=== PATIENT | male | born 1940 | race Caucasian/White ===

== ENCOUNTER 2018-06-25 10:18 | Emergency (ER) | payer MEDICARE, OTHER, SELFPAY ==
[2018-06-25 10:39] VITALS: BP 132/80; PULSE 80; RESP 13; TEMP 36.2; O2SAT 99
--- NOTE | 2018-06-25 10:50 | ED.WOUNDLAC ---
HPI - Wound/Laceration General Chief Complaint: Wound/Laceration Stated Complaint: hand laceration Time Seen by Provider: 06/25/18 10:21 Source: patient Mode of arrival: ambulatory Limitations: no limitations History of Present Illness HPI narrative: [id number] male here for evaluation of a cut to his left hand. Patient states that just prior to arrival he cut his hand on a brand-new oyster knife. He does not know when his last tetanus shot was flared he did wash it out prior to arrival. Review of Systems Integumentary/Breasts Comments: Cut to left hand Neurologic Comments: No numbness or tingling in the left hand Hematologic/Lymphatic Denies easy bleeding and Denies easy bruising [facility] Medical History Healthy adult (Acute) Surgical History No pertinent past surgical history (Acute) Social History Smoking Status: Never smoker Exam Initial Vital Signs Initial Vital Signs: Vital Signs Temperature 97.1 F L 06/25/18 10:39 Pulse Rate 80 06/25/18 10:39 Respiratory Rate 13 06/25/18 10:39 Blood Pressure 132/80 06/25/18 10:39 Pulse Oximetry 99 06/25/18 10:39 Const General: cooperative, healthy appearing, comfortable, well developed and acute distress Resp Effort & Inspection: normal respiratory effort Cardio Pulses: radial pulses present on the left Skin Other: 2 cm laceration to the palmar aspect over the thenar eminence left hand. No active bleeding. Neuro Other: Sensation intact to light touch left upper extremity Procedures Laceration Repair Laceration 1: Site: hand Side (If applicable): left Size (cm): 2 Description: linear Depth: simple, single layer Local Anesthetic: lidocaine 1% Amount of anesthesia used (mL): 2 Pre-repair: wound explored, irrigated extensively and deep structures intact Skin layer closed with: nylon Size (cm): 5-0 Number of sutures: 2 Technique: simple, interrupted Course Orders Ordered: Discontinued Medications Diphtheria/Tetanus/Acell Pertussis (Adacel) 0.5 ml IM .ONCE ONE Stop: 06/25/18 10:51 Last Admin: 06/25/18 11:06 Dose: 0.5 ml Vital Signs - 8 hr 06/25/18 10:39 Temperature 97.1 F L Pulse Rate 80 Respiratory Rate 13 Blood Pressure 132/80 Pulse Oximetry 99 MDM - Wound/Laceration MDM Narrative Medical decision making narrative: Neurovascularly intact. Laceration closed as above. Patient was given care instructions. His tetanus shot was updated here in the ER. Patient expressed understanding and agreement with plan. Discharge Plan Departure Patient Disposition: Home Clinical Impression: Laceration Discharge Date/Time: 06/25/18 11:27 Interventions: ED Discharge Assessment Last Done: 06/25/18 11:26 Instructions: DI for Minor Laceration Activity Restrictions/Additional Instructions: Keep the bandage on for the next 24 hr but then after that you can take it off and shower like normal. Use soap and water as needed. Return to the emergency department for any new or worsening symptoms. The stitches do need to be removed in approximately 7-10 days.
[2018-06-25] MEDS: TET,DIPH,PERTUSS(ACELL),VAC/PF 0.5 ML SYRINGE IM (11:06)
[2018-06-25 11:26] VITALS: BP 131/73; PULSE 51; RESP 12; O2SAT 98
== END 2018-06-25 11:27 | disposition home or self-care (01) ==
PROVIDERS: Emergency Provider Emergency Medicine
DX: S61.412A Laceration without foreign body of left hand, initial encounter (principal); W26.0XXA Contact with knife, initial encounter
CPT/HCPCS: 12001; 90471; 99283; 90715

== ENCOUNTER 2019-05-01 12:11 | Emergency (ER) | payer MEDICARE, OTHER, SELFPAY ==
[2019-05-01 12:27] VITALS: BP 160/67; PULSE 57; RESP 15; TEMP 36.2; O2SAT 99; BMI 25.6
[2019-05-01 12:54] VITALS: BP 165/66; PULSE 54; RESP 17; O2SAT 99
--- NOTE | 2019-05-01 12:55 | PC.NURSE ---
pt arrived with charleen wrap around abd and back.
--- NOTE | 2019-05-01 12:56 | PC.NURSE ---
pt describes falling into boat, thinks he stretched out left arm or elbow and now has lt back/scapula pain.
[2019-05-01 13:00] VITALS: BP 150/70; PULSE 53; O2SAT 99
--- NOTE | 2019-05-01 13:02 | DI.RAD.S_ITS ---
PROCEDURE: XR RIBS LT MIN 3V W CXR1V INDICATIONS: Fall on side, pain with palp, worse with deep breath. TECHNIQUE: 2 views of the left ribs were acquired, along with a single view chest. COMPARISON: None. FINDINGS: Surgical changes and devices: None. Bones and chest wall: There is a displaced fracture within the lateral aspect of the eighth left rib. There is also a subtle deformity within the anterolateral aspect of the ninth left rib. Lungs and pleura: No pleural effusions or pneumothorax. Lungs appear clear. Mediastinum: Mediastinal contours appear normal. Heart size is normal. IMPRESSION: Displaced eighth left rib fracture and possible ninth left rib fracture as well. Dictated by: Zeinab Barajas M.D. on 05/01/2019 at 13:37 Approved by: Zeinab Barajas M.D. on 05/01/2019 at 13:40
--- NOTE | 2019-05-01 13:06 | ED_ITS ---
HPI - Back Pain/Injury <Keara SmithNICHELLE - Last Filed: 05/01/19 21:01> General Chief Complaint: Back Pain/Injury Stated Complaint: fall middle right back hurting Time Seen by Provider: 05/01/19 12:31 Source: patient Mode of arrival: ambulatory Limitations: no limitations History of Present Illness HPI Narrative: 78-year-old male with a history of hypercholesterol and hypertension, presents emergency department today after falling into his boat and landing on the left side of his back and shoulder. He states he tripped over his things on the deck in slipped back into the boat. He complains of left posterior rib pain underneath his left scapula. He states pain is in aching 5/10 that is worse with movement and palpation. Last night he had trouble falling asleep has it was hard to get comfortable, he was unable to lay on that side. Pain is also worse when he takes a deep breath or tries to clear his throat. He has been trying to stabilize his back with an Lincoln bandage, he states this helped somewhat. He denies hitting his head, denies dizziness, shortness of breath, cough, chest pain, abdominal pain, nausea, vomiting, or change in mental status. His is also in the room and confirms the story. MD Complaint: back pain and fall Onset (ago): day(s) Duration: constant Similar Symptoms Previously: No Location: left upper back Severity: moderate Quality: aching Radiation: none Severity scale (1-10): 5 Relieving factors: immobilization Related Data Home Medications Medication Instructions Recorded Confirmed amlodipine 5 mg PO DAILY 05/01/19 05/01/19 aspirin 81 mg PO DAILY 05/01/19 05/01/19 cilostazol 100 mg PO DAILY 05/01/19 05/01/19 doxazosin 2 mg PO DAILY 05/01/19 05/01/19 escitalopram oxalate 10 mg PO DAILY 05/01/19 05/01/19 finasteride 5 mg PO DAILY 05/01/19 05/01/19 furosemide 40 mg PO DAILY 05/01/19 05/01/19 metoprolol tartrate 05/01/19 pravastatin 20 mg PO DAILY 05/01/19 05/01/19 tiotropium bromide [Spiriva 1 puff INHALATION DIRECTED 05/01/19 05/01/19 Respimat] Previous Rx's Medication Instructions Recorded hydrocodone-acetaminophen [[place]] 1 tab PO Q6H PRN #7 tab 05/01/19 meloxicam [Mobic] 7.5 mg PO DAILY #7 tab 05/01/19 Allergies Allergy/AdvReac Type Severity Reaction Status Date / Time No Known Drug Allergies Allergy Verified 05/01/19 12:27 Review of Systems <NICHELLE Barber - Last Filed: 05/01/19 21:01> Review of Systems REVIEW OF SYSTEMS: GENERAL: Denies fever or chills. HENT: No head trauma. EYES: No double vision or vision loss. CARDIOVASCULAR: No chest pain or syncope. RESPIRATORY: No shortness of breath or cough. However, pain is worse with deep breath. GASTROINTESTINAL: No nausea, vomiting, diarrhea, or constipation. GENITOURINARY: No flank pain or dysuria. MUSCULOSKELETAL: Complains of left back pain, see HPI. INTEGUMENTARY: No rash, lesions, or pruritus. NEURO: No numbness, tingling. PSYCH: No behavior or mood changes. PFSH <NICHELLE Barber - Last Filed: 05/01/19 21:01> Medical History Healthy adult (Acute) Hypertension (Acute) Surgical History No pertinent past surgical history (Acute) Social History Smoking Status: Never smoker Social History Smoking Status: Never smoker Exam <NICHELLE Barber - Last Filed: 05/01/19 21:01> Initial Vital Signs Initial Vital Signs: Vital Signs Temperature 97.1 F L 05/01/19 12:27 Pulse Rate 57 L 05/01/19 12:27 Respiratory Rate 15 05/01/19 12:27 Blood Pressure 160/67 H 05/01/19 12:27 Pulse Oximetry 99 05/01/19 12:27 PHYSICAL EXAMINATION: GENERAL: Well groomed, alert, and cooperative. Answers questions promptly and appropriately. Vital signs noted. HENT: Normocephalic, atraumatic. EYES: Symmetrical, sclera white, no periorbital swelling. CARDIOVASCULAR: S1 and S2 sounds normal. Regular rate and rhythm, no murmurs, clicks, or bruits. No pedal edema. RESPIRATORY: Normal respiratory rate, trachea midline, airway patent. No stridor, nasal flaring or accessory muscle use. Lungs are clear in all sánchez. Patient hesitated to take deep breaths as this cause more pain. MUSCULOSKELETAL: Normal gait and coordination. Equal tone and mass bilaterally. No spinal tenderness or deformities. Significant tenderness with palpation of left posterior ribs. No tenderness to palpation of scapula, shoulders, or pelvis. No ecchymosis or erythema noted. EXTREMITIES: CMS intact. No pedal edema. SKIN: Warm, dry, soft, appropriate color for ethnicity. No lesions, rashes, or wounds. NEURO: Alert and Oriented X 3. No sensory deficits. PSYCH: Appropriate affect and mood. <Ludy Tay MD - Last Filed: 05/12/19 07:59> Initial Vital Signs Initial Vital Signs: Vital Signs Temperature 97.1 F L 05/01/19 12:27 Pulse Rate 57 L 05/01/19 12:27 Respiratory Rate 15 05/01/19 12:27 Blood Pressure 160/67 H 05/01/19 12:27 Pulse Oximetry 99 05/01/19 12:27 Scores <NICHELLE Barber - Last Filed: 05/01/19 21:01> Nexus Score for C-Spine Focal Neurologic deficit present: No Midline spinal tenderness present: No Altered level of conciousness present: No Intoxication present: No Distracting Injury Present: No Nexus Criteria for C-spine: 0 Course <NICHELLE Barber - Last Filed: 05/01/19 21:01> Course Narrative: Extensive time was spent in conversation about the prognosis of rib fractures. Patient understood follow-up instructions. Orders Ordered: ED Orders 05/01/19 13:02 XR ribs LT min 3V w CXR1V Stat 05/01/19 14:23 RT Consult Eval and Treat Now Consultations Consultation #1: Staffed with Dr. Tay. Vital Signs - 8 hr 05/01/19 13:00 05/01/19 14:34 Pulse Rate 53 L 51 L Blood Pressure 159/71 H Blood Pressure [Right Arm] 150/70 H Pulse Oximetry 99 100 <Ludy Tay MD - Last Filed: 05/12/19 07:59> Orders Ordered: ED Orders 05/01/19 13:02 XR ribs LT min 3V w CXR1V Stat 05/01/19 14:23 RT Consult Eval and Treat Now Vital Signs - 8 hr 05/01/19 13:00 05/01/19 14:34 Pulse Rate 53 L 51 L Blood Pressure 159/71 H Blood Pressure [Right Arm] 150/70 H Pulse Oximetry [address] [facility] - Back Pain/Injury <NICHELLE Barber - Last Filed: 05/01/19 21:01> Medical Records Attestation: I reviewed the patient's medical records. Lab Data Attestation: I reviewed the patient's lab results. [facility] Narrative Medical decision making narrative: I suspect patient's pain is caused from rib fractures due to positive findings on x-ray as well as an exam that correlates with these findings. Less likely pneumothorax as patient is able to take deep breaths he is just has not had due to the pain, and x-ray showing no changes to lung sánchez. Due to multiple rib fractures, this patient's visit was considered for trauma documentation. Discharge Plan Departure Patient Disposition: Home Clinical Impression: Fracture, ribs Qualifiers: Encounter type: initial encounter Rib fracture type: multiple ribs Fracture type: closed Laterality: left Qualified Code(s): S22.42XA - Multiple fractures of ribs, left side, initial encounter for closed fracture Discharge Date/Time: 05/01/19 14:35 Interventions: ED Discharge Assessment Last Done: 05/01/19 14:34 Instructions: DI for Rib Fracture Activity Restrictions/Additional Instructions: Thank you for entrusting me with your care today. As discussed, you have a fracture of your 8th and possibly your 9th rib. Please use your incentive spirometer for 10 breaths, 10 times a day for 6 weeks. I prescribed you medication, 1 medication is a narcotic, please do not drive with this as it can make you drowsy, take [id number] stool softener such as Docusate Colace if you developed constipation. Follow up with your primary care provider in the next few weeks. Return to the emergency department if you develops severe chest pain, shortness of breath, fevers, dizziness, or syncope. Prescriptions: New hydrocodone-acetaminophen [[place]] 5-325 mg tablet 1 tab PO Q6H PRN (Reason: Rib fractures. ) Qty: 7 RF: 0 meloxicam [Mobic] 7.5 mg tablet 7.5 mg PO DAILY Qty: 7 RF: 0 No Action furosemide 40 mg tablet 40 mg PO DAILY RF: 0 cilostazol 100 mg tablet 100 mg PO DAILY RF: 0 amlodipine 5 mg tablet 5 mg PO DAILY RF: 0 aspirin 81 mg tablet,delayed release (DR/EC) 81 mg PO DAILY RF: 0 pravastatin 20 mg tablet 20 mg PO DAILY RF: 0 finasteride 5 mg tablet 5 mg PO DAILY RF: 0 doxazosin 2 mg tablet 2 mg PO DAILY RF: 0 escitalopram oxalate 10 mg tablet 10 mg PO DAILY RF: 0 metoprolol tartrate 25 mg tablet RF: 0 Spiriva Respimat 2.5 mcg/actuation mist 1 puff inhalation DIRECTED RF: 0
[2019-05-01 14:34] VITALS: BP 159/71; PULSE 51; O2SAT 100
== END 2019-05-01 14:35 | disposition home or self-care (01) ==
PROVIDERS: Emergency Provider Nurse Practitioner
DX: S22.42XA Multiple fractures of ribs, left side, initial encounter for closed fracture (principal); W01.0XXA Fall on same level from slipping, tripping and stumbling without subsequent striking against object, initial encounter
CPT/HCPCS: 71101; 99282; 99283

== ENCOUNTER → 2023-05-26 12:58 | Outpatient (CLI) | payer MEDICARE, OTHER, SELFPAY ==
--- NOTE | 2023-05-26 | DI.MRI.S_ITS ---
PROCEDURE: MR LUMBAR SPINE WO CON INDICATIONS: SPINAL STENOSIS TECHNIQUE: Noncontrast sagittal T1 spin echo and T2 fast echo, sagittal STIR, and T2 fast spin echo through the lumbar spine. In cases with scoliosis, additional coronal T2 fast spin echo may be performed. COMPARISON: [facility] [place], [place], XR LUMBAR SPINE 2 OR 3 VIEWS, 05/08/2023, 11:23. FINDINGS: Image quality: Excellent. Alignment and Curvature: There is normal bony alignment. Bone Marrow: Marrow is of normal overall signal. No acute vertebral body compression fractures. Spinal Cord: Conus medullaris terminates at the L1 level. Visualized cord demonstrates normal signal and size. Paraspinous Soft Tissues: No paravertebral masses. T12-L1: No significant disc bulge. The foramina and central canal are patent. L1-L2: The disc is mildly desiccated. No significant disc bulge. The foramina and central canal are patent. L2-L3: Disc space narrowing and diffuse disc bulge with disc osteophytes. There is facet hypertrophy on the right. Moderate bilateral foraminal stenosis. The central canal has mild stenosis. There is ligamentum flavum hypertrophy. L3-L4: Disc space narrowing with a diffuse disc bulge and disc osteophytes. Facet hypertrophy, worse on the right causes severe right and mild left foraminal stenosis. The central canal has mild stenosis. There is ligamentum flavum hypertrophy. L4-L5: The disc is desiccated with a diffuse disc bulge. There is facet hypertrophy bilaterally. Moderate bilateral foraminal stenosis. A calcification projecting anteriorly and medially into the canal at L4-5 causes severe central canal stenosis. L5-S1: Disc space narrowing and a diffuse disc bulge with disc osteophytes. Bilateral facet hypertrophy. Mild right and moderate left foraminal stenosis. The central canal is patent. IMPRESSION: 1. Multilevel lumbar spondylosis causing foraminal stenosis as detailed above. 2. A sclerotic osseous body projecting anteriorly and medially into the canal from the ligamentum flavum at L4-5 causes severe central canal stenosis and severe left foraminal stenosis at this level. Dictated by: Haim Cartagena M.D. on 05/26/2023 at 15:09 Approved by: Haim Cartagena M.D. on 05/26/2023 at 15:17
== END ==
PROVIDERS: Referring Provider Physical Medicine & Rehabilitation; Visit Provider Physical Medicine & Rehabilitation
DX: M48.062 Spinal stenosis, lumbar region with neurogenic claudication (principal); M48.07 Spinal stenosis, lumbosacral region; M47.816 Spondylosis without myelopathy or radiculopathy, lumbar region; M47.817 Spondylosis without myelopathy or radiculopathy, lumbosacral region
CPT/HCPCS: 72148